=== PATIENT | male | born 1975 | race Two or more races ===

== ENCOUNTER 2024-11-22 10:45 | Outpatient (CLI) | payer MEDICAID ==
[2024-11-22] MEDS ORDERED: ALBUTEROL SULF 2.5 MG/0.5ML(0.5%) NEB SOLN ONE (11:10)
== END 2024-11-22 17:00 | disposition home or self-care (01) ==
LOC: RT 10:45
PROVIDERS: ATTEND Internal Medicine Pulmonary Disease
DX: J44.9 Chronic obstructive pulmonary disease, unspecified (principal); R06.00 Dyspnea, unspecified; R05.9 Cough, unspecified
CPT/HCPCS: 94060; 94618; 94727; 94729